=== PATIENT | female | born 1965 | race African-American/Black ===

== ENCOUNTER 2023-06-29 14:02 | Inpatient (IN) | payer BC ==
[2023-06-29 15:11] VITALS: BMI 28.8
[2023-06-29] MEDS ORDERED: POLYETHYLENE GLYCOL (HEALTHYLAX) 3350 17 GM PACKET PO PRN (17:31)
[2023-06-29] MEDS ORDERED: MAG HYDROX/AL HYDROX/SIMETH 30 ML UNIT-DOSE CUP PO PRN (17:31)
[2023-06-29] MEDS ORDERED: BISMUTH SUBSALICYLATE 524 MG/30 ML PO PRN (17:31)
[2023-06-29] MEDS ORDERED: BENZONATATE 200 MG CAPSULE PO PRN (17:31)
[2023-06-29] MEDS ORDERED: LOPERAMIDE HCL 2 MG CAPSULE PO PRN (17:31)
[2023-06-29] MEDS ORDERED: diazePAM 5 MG TABLET PO PRN (17:31)
[2023-06-29] MEDS ORDERED: ONDANSETRON *ODT* 4 MG TABLET SL PRN (17:31)
[2023-06-29] MEDS ORDERED: IBUPROFEN 400 MG TABLET (FP) PO PRN (17:31)
[2023-06-29] MEDS ORDERED: guaiFENesin 600 MG TABLET.ER (FP) PO PRN (17:31)
[2023-06-29] MEDS ORDERED: BENZOCAINE/MENTHOL (CHLORASEPTIC ) LOZENGE MM PRN (17:31)
[2023-06-29] MEDS ORDERED: NALOXONE HCL (KLOXXADO) 8 MG SPRAY NS PRN (17:31)
[2023-06-29] MEDS ORDERED: hydrOXYzine PAMOATE 25 MG CAPSULE (FP) PO PRN (17:31)
[2023-06-29] MEDS ORDERED: ACETAMINOPHEN 325 MG TABLET (FP) PO PRN ×2 (17:31→18:40)
[2023-06-29] MEDS ORDERED: MAGNESIUM HYDROX 2400MG/30ML ORAL SUSPENSION 30 ML CUP PO PRN (17:31)
[2023-06-29] MEDS ORDERED: DICYCLOMINE HCL 10 MG CAPSULE PO PRN (17:31)
[2023-06-29] MEDS ORDERED: IBUPROFEN 600 MG TABLET (FP) PO PRN (17:31)
[2023-06-29] MEDS ORDERED: NALOXONE HCL 0.4 MG/ML VIAL IM PRN (17:31)
[2023-06-29] MEDS: diazePAM 5 MG TABLET PO PRN (20:18)
[2023-06-29] MEDS: ACETAMINOPHEN 500 MG TABLET (FP) PO PRN (20:22)
[2023-06-29] MEDS ORDERED: PATIENT'S OWN MEDICATION (NON-FORMULARY) (Ferrous Sulfate [Ferrous Sulfate] 325 MG Tablet) PO SCH (22:00)
[2023-06-29] MEDS: FERROUS SO4 325 MG TABLET (FP) PO SCH (22:50)
[2023-06-29] MEDS: MELATONIN 5 MG TABLETS PO SCH (22:50)
[2023-06-29] MEDS: THIAMINE HCL 100 MG TABLET (FP) PO SCH (22:50)
[2023-06-29] MEDS: CARVEDILOL 12.5 MG TABLET (FP) PO SCH (22:50)
[2023-06-29] MEDS: AMMONIUM LACTATE 12% LOTION 225 GM BOTTLE TP SCH (22:50)
[2023-06-29] MEDS: KETOCONAZOLE 2% TOPICAL CREAM 15 GM TUBE TP SCH (22:51)
[2023-06-29] MEDS: diazePAM 5 MG TABLET PO SCH (22:52)
[2023-06-30] MEDS: PRENATAL VITAMINS W/ FOLIC ACID TABLET (FP) PO SCH (10:19)
[2023-06-30 15:03] LABS: HEMATOCRIT 35.1 % (32.4-45.2); HEMOGLOBIN 11.4 GM/dL (10.7-15.3); MCH 26.8 pg (25.7-33.7); MCHC 32.4 g/dl (32.0-36.0); MEAN CELL VOLUME 82.7 fl (80-96); MEAN PLT VOLUME 9.4 fl (7.5-11.1); PLATELET COUNT 161 10^3/uL (134-434); RBC 4.24 M/mm3 (3.60-5.2); RDW 15.5 % (11.6-15.6); WHITE BLOOD COUNT 4.7 K/mm3 (4.0-10.0)
[2023-06-30 15:06] LABS: CHLORIDE 107 mmol/L (98-107); POTASSIUM 3.9 mmol/L (3.5-5.1); SODIUM 141 mmol/L (136-145)
[2023-06-30 15:12] LABS: CALCIUM 9.4 mg/dL (8.5-10.1)
[2023-06-30 15:13] LABS: ALBUMIN 3.6 g/dl (3.4-5.0); ANION GAP 6 mmol/L (4-13); BLOOD UREA NITROGEN 14.4 mg/dL (7-18); CO2 28 mmol/L (21-32); GLUCOSE,RANDOM 111 mg/dL (74-106)
[2023-06-30 15:16] LABS: CREATININE 0.7 mg/dL (0.55-1.3); SGOT/AST 27 U/L (15-37); SGPT/ALT 15 U/L (13-61)
[2023-06-30 15:17] LABS: BILIRUBIN,TOTAL 0.3 mg/dL (0.2-1); TOT PROT 6.7 g/dl (6.4-8.2)
[2023-06-30 15:19] LABS: ALK PHOS 78 U/L (45-117)
[2023-07-01] MEDS: NICOTINE POLACRILEX 2 MG GUM BUC PRN (06:00)
[2023-07-01] MEDS: diazePAM 5 MG TABLET PO SCH (06:01)
[2023-07-01] MEDS: lamoTRIgine 25 MG TABLET PO SCH (10:49)
[2023-07-01] MEDS: METHOCARBAMOL 500 MG TABLET PO PRN (10:51)
[2023-07-01] MEDS: COLLOIDAL OATMEAL 1 EACH PACKET TP SCH (14:30)
[2023-07-01] MEDS: LORazepam 1 MG TABLET PO SCH (17:17)
[2023-07-02] MEDS: LORazepam 0.5 MG TABLET PO SCH (05:55)
[2023-07-02] MEDS ORDERED: diazePAM 5 MG TABLET PO SCH (06:00)
[2023-07-02] MEDS: LORazepam 0.5 MG TABLET PO ONE (14:31)
[2023-07-03] MEDS: LORazepam 0.5 MG TABLET PO ONE ×2 (05:59→10:13)
[2023-07-03] MEDS ORDERED: diazePAM 5 MG TABLET PO ONE (06:00)
[2023-07-03 09:16] VITALS: BP 144/89; PULSE 72; RESP 18; TEMP 98.1
== END 2023-07-03 10:43 | disposition home or self-care (01) | DRG 774 ==
LOC: YASAS 14:02 → Y3N 18:13
PROVIDERS: ADMIT Allergy & Immunology; ATTEND Surgery
PROC: HZ2ZZZZ Detoxification Services for Substance Abuse Treatment (ICD-10-PCS; principal; 2023-06-29)
DX: F10.230 Alcohol dependence with withdrawal, uncomplicated (principal); F14.20 Cocaine dependence, uncomplicated; F17.210 Nicotine dependence, cigarettes, uncomplicated; F19.24 Other psychoactive substance dependence with psychoactive substance-induced mood disorder; F31.9 Bipolar disorder, unspecified; F41.9 Anxiety disorder, unspecified; G47.00 Insomnia, unspecified; I10 Essential (primary) hypertension; Z86.73 Personal history of transient ischemic attack (TIA), and cerebral infarction without residual deficits; Z88.6 Allergy status to analgesic agent
CPT/HCPCS: 36415; 80053; 80307; 85027; 86780; 87635; 87811; 93005; 93010